=== PATIENT | male | born 1935 | race Caucasian/White ===

== ENCOUNTER 2019-02-11 12:05 | Inpatient (IN) | payer MEDICARE, OTHER ==
[2019-02-11 13:29] LABS: ADD MAN DIFF? NO
[2019-02-11 13:31] LABS: BASOPHILS % 0.2 % (0.0-2.0); EOSINOPHILS % 0.2 % (0.0-7.0); HEMATOCRIT 45.4 % (42.0-52.0); HEMOGLOBIN 14.6 g/dl (14.0-18.0); LYMPHOCYTES # 0.8 10^3/ul (0.8-2.9); LYMPHOCYTES % 7.1 % (15.0-51.0); MEAN CORPUSCULAR HEMOGLOBIN 31.8 pg (29.0-33.0); MEAN CORPUSCULAR HGB CONC 32.2 g/dl (32.0-37.0); MEAN CORPUSCULAR VOLUME 98.9 fl (82.0-101.0); MEAN PLATELET VOLUME 9.5 fl (7.4-10.4); MONOCYTE # 0.8 10^3/ul (0.3-0.9); MONOCYTES % 7.3 % (0.0-11.0); NEUTROPHIL # 9.3 10^3/ul (1.6-7.5); NEUTROPHILS % 84.8 % (39.0-77.0); PLATELET COUNT 245 10^3/UL (140-415); RED BLOOD COUNT 4.59 10^6/ul (4.70-6.10); RED CELL DISTRIBUTION WIDTH 12.7 % (11.5-14.5)
[2019-02-11] MEDS: ALBUTEROL 0.5% (NEB) 2.5 MG/0.5 ML AMP INH (13:31)
[2019-02-11] MEDS: IPRATROPIUM (NEB) 0.5 MG/2.5 ML AMP INH (13:32)
[2019-02-11] MEDS: CEFTRIAXONE 1 GM/50 ML (PMX) 50 ML IVPB ×2 (13:33→20:19)
[2019-02-11] MEDS: METHYLPREDNISOLONE 125 MG INJ IV (13:33)
[2019-02-11 13:47] LABS: ANION GAP 9 (5-13); BLOOD UREA NITROGEN 15 mg/dl (7-20); CALCIUM 9.3 mg/dl (8.4-10.2); CARBON DIOXIDE 31 mmol/L (21-31); CHLORIDE 97 mmol/L (97-110); CREATININE 0.69 mg/dl (0.61-1.24); GLUCOSE 91 mg/dl (70-220); SODIUM 137 mmol/L (135-144)
[2019-02-11] MEDS: AZITHROMYCIN 500MG/NS (PMX) 250 ML IV (13:50)
[2019-02-11 13:51] LABS: INR 2.65; PROTIME 28.3 Sec (11.9-14.9); PT RATIO 2.2
[2019-02-11 13:53] LABS: PARTIAL THROMBOPLASTIN TIME 64.6 Sec (23.0-35.0)
[2019-02-11 14:00] LABS: B-TYPE NATRIURETIC PEPTIDE 2550 PG/ML (0-450); TROPONIN-I < 0.012 ng/ml (0.000-0.120)
[2019-02-11] MEDS: SOD CHLORIDE 0.9% 1,000 ML IV (14:16)
[2019-02-11] MEDS ORDERED: ONDANSETRON 4 MG INJ IV (14:30)
[2019-02-11] MEDS ORDERED: ACETAMINOPHEN 325 MG TAB PO ×2 (14:30→15:00)
[2019-02-11] MEDS ORDERED: NACL 0.9% 3 ML SYG IV (15:00)
[2019-02-11] MEDS ORDERED: MAGNESIUM HYDROXIDE 30ML CUP PO (15:00)
[2019-02-11] MEDS ORDERED: HYDROCODONE/APAP (5/325) TAB PO (15:00)
[2019-02-11 19:54] LABS: LACTIC ACID 3.2 mmol/L (0.5-2.0)
[2019-02-11] MEDS: ALBUTEROL/IPRATROPIUM (NEB) 3 ML AMP HHN (20:03)
[2019-02-11] MEDS: DEXTROSE 5%-0.45% NACL 1,000 ML IV (20:18)
[2019-02-11] MEDS: RIVAROXABAN 20 MG TABLET PO (20:21)
[2019-02-11] MEDS: ATORVASTATIN 20 MG TAB PO (20:21)
[2019-02-11] MEDS: AZITHROMYCIN 250 MG TAB PO (21:12)
[2019-02-11 22:00] LABS: LACTIC ACID 2.8 mmol/L (0.5-2.0)
[2019-02-12] MEDS: ALBUTEROL/IPRATROPIUM (NEB) 3 ML AMP HHN ×4 (02:14→21:07)
[2019-02-12] MEDS: DEXTROSE 5%-0.45% NACL 1,000 ML IV ×2 (03:35→14:15)
[2019-02-12] MEDS: PANTOPRAZOLE (EC) 40 MG TAB PO (05:18)
[2019-02-12] MEDS: FOLIC ACID 1 MG TAB PO (08:28)
[2019-02-12] MEDS: DILTIAZEM (CD) 120 MG CAP PO ×2 (08:28→20:28)
[2019-02-12] MEDS: CEFTRIAXONE 1 GM/50 ML (PMX) 50 ML IVPB (08:28)
[2019-02-12] MEDS: AZITHROMYCIN 250 MG TAB PO (08:28)
[2019-02-12 10:33] LABS: HEMOGLOBIN A1C 5.7 % (0-5.9)
[2019-02-12] MEDS: RIVAROXABAN 20 MG TABLET PO (18:42)
[2019-02-12] MEDS: ATORVASTATIN 20 MG TAB PO (20:28)
[2019-02-13] MEDS: ALBUTEROL/IPRATROPIUM (NEB) 3 ML AMP HHN ×4 (02:18→20:08)
[2019-02-13] MEDS: PANTOPRAZOLE (EC) 40 MG TAB PO (05:05)
[2019-02-13] MEDS: DEXTROSE 5%-0.45% NACL 1,000 ML IV ×2 (05:05→20:27)
[2019-02-13 06:17] LABS: ADD MAN DIFF? NO
[2019-02-13 06:22] LABS: WHITE BLOOD COUNT 17.5 10^3/ul (4.8-10.8)
[2019-02-13 06:22] LABS: BASOPHILS % 0.2 % (0.0-2.0); HEMATOCRIT 39.1 % (42.0-52.0); HEMOGLOBIN 12.7 g/dl (14.0-18.0); LYMPHOCYTES # 0.7 10^3/ul (0.8-2.9); MEAN CORPUSCULAR HEMOGLOBIN 32.3 pg (29.0-33.0); MEAN CORPUSCULAR HGB CONC 32.5 g/dl (32.0-37.0); MEAN CORPUSCULAR VOLUME 99.5 fl (82.0-101.0); MEAN PLATELET VOLUME 9.5 fl (7.4-10.4); MONOCYTE # 0.9 10^3/ul (0.3-0.9); MONOCYTES % 5.3 % (0.0-11.0); NEUTROPHIL # 15.7 10^3/ul (1.6-7.5); NEUTROPHILS % 89.6 % (39.0-77.0); PLATELET COUNT 281 10^3/UL (140-415); RED BLOOD COUNT 3.93 10^6/ul (4.70-6.10); RED CELL DISTRIBUTION WIDTH 12.9 % (11.5-14.5)
[2019-02-13 06:49] LABS: ALANINE AMINOTRANSFERASE 50 IU/L (13-69); ALBUMIN 3.1 g/dl (3.3-4.9); ALBUMIN/GLOBULIN RATIO 1.14; ALKALINE PHOSPHATASE 89 IU/L (42-121); ANION GAP 6 (5-13); ASPARTATE AMINO TRANSFERASE 42 IU/L (15-46); BILIRUBIN,INDIRECT 0.2 mg/dl (0-1.1); BILIRUBIN,TOTAL 0.2 mg/dl (0.2-1.3); BLOOD UREA NITROGEN 19 mg/dl (7-20); CALCIUM 9.4 mg/dl (8.4-10.2); CARBON DIOXIDE 29 mmol/L (21-31); CHLORIDE 106 mmol/L (97-110); CREATININE 0.72 mg/dl (0.61-1.24); GLUCOSE 124 mg/dl (70-220); MAGNESIUM 2.1 mg/dl (1.7-2.5); PHOSPHORUS 3.4 mg/dl (2.5-4.9); POTASSIUM 4.2 mmol/L (3.5-5.1); SODIUM 141 mmol/L (135-144); TOTAL PROTEIN 5.8 g/dl (6.1-8.1)
[2019-02-13] MEDS: DILTIAZEM (CD) 120 MG CAP PO ×2 (08:46→20:28)
[2019-02-13] MEDS: FOLIC ACID 1 MG TAB PO (08:46)
[2019-02-13] MEDS: CEFTRIAXONE 1 GM/50 ML (PMX) 50 ML IVPB (08:46)
[2019-02-13] MEDS: AZITHROMYCIN 250 MG TAB PO (08:50)
[2019-02-13] MEDS: RIVAROXABAN 20 MG TABLET PO (17:46)
[2019-02-13] MEDS: predniSONE 20 MG TAB PO (17:46)
[2019-02-13] MEDS: ATORVASTATIN 20 MG TAB PO (20:28)
[2019-02-14] MEDS: ALBUTEROL/IPRATROPIUM (NEB) 3 ML AMP HHN ×3 (01:09→15:00)
[2019-02-14] MEDS: PANTOPRAZOLE (EC) 40 MG TAB PO (05:11)
[2019-02-14 06:57] LABS: ADD MAN DIFF? NO
[2019-02-14 06:59] LABS: ABNORMAL IP MESSAGE 1; BASOPHIL # 0.1 10^3/ul (0.0-0.1); BASOPHILS % 0.5 % (0.0-2.0); HEMATOCRIT 42.7 % (42.0-52.0); HEMOGLOBIN 13.6 g/dl (14.0-18.0); LYMPHOCYTES # 0.5 10^3/ul (0.8-2.9); LYMPHOCYTES % 4.4 % (15.0-51.0); MEAN CORPUSCULAR HEMOGLOBIN 32.1 pg (29.0-33.0); MEAN CORPUSCULAR HGB CONC 31.9 g/dl (32.0-37.0); MEAN CORPUSCULAR VOLUME 100.7 fl (82.0-101.0); MEAN PLATELET VOLUME 9.2 fl (7.4-10.4); MONOCYTE # 0.6 10^3/ul (0.3-0.9); MONOCYTES % 5.4 % (0.0-11.0); NEUTROPHIL # 10.3 10^3/ul (1.6-7.5); NEUTROPHILS % 87.3 % (39.0-77.0); PLATELET COUNT 316 10^3/UL (140-415); POSITIVE DIFF @See below; RED BLOOD COUNT 4.24 10^6/ul (4.70-6.10); RED CELL DISTRIBUTION WIDTH 12.9 % (11.5-14.5)
[2019-02-14 06:59] LABS: WHITE BLOOD COUNT 11.8 10^3/ul (4.8-10.8)
[2019-02-14 07:23] LABS: PHOSPHORUS 4.2 mg/dl (2.5-4.9)
[2019-02-14 07:23] LABS: MAGNESIUM 1.9 mg/dl (1.7-2.5)
[2019-02-14 07:33] LABS: ANION GAP 8 (5-13); BLOOD UREA NITROGEN 21 mg/dl (7-20); CALCIUM 9.4 mg/dl (8.4-10.2); CARBON DIOXIDE 29 mmol/L (21-31); CHLORIDE 103 mmol/L (97-110); CREATININE 0.68 mg/dl (0.61-1.24); GLUCOSE 123 mg/dl (70-220); POTASSIUM 4.3 mmol/L (3.5-5.1); SODIUM 140 mmol/L (135-144)
[2019-02-14] MEDS: predniSONE 20 MG TAB PO (08:16)
[2019-02-14] MEDS: DILTIAZEM (CD) 120 MG CAP PO ×2 (08:17→19:45)
[2019-02-14] MEDS: CEFTRIAXONE 1 GM/50 ML (PMX) 50 ML IVPB (08:17)
[2019-02-14] MEDS: AZITHROMYCIN 250 MG TAB PO (08:17)
[2019-02-14] MEDS: FOLIC ACID 1 MG TAB PO (08:17)
[2019-02-14] MEDS: DEXTROSE 5%-0.45% NACL 1,000 ML IV (08:49)
[2019-02-14] MEDS: IPRATROPIUM (NEB) 0.5 MG/2.5 ML AMP HHN ×2 (17:00→20:34)
[2019-02-14] MEDS: RIVAROXABAN 20 MG TABLET PO (17:48)
[2019-02-14] MEDS: ATORVASTATIN 20 MG TAB PO (19:44)
[2019-02-15] MEDS: IPRATROPIUM (NEB) 0.5 MG/2.5 ML AMP HHN ×5 (01:03→16:41)
[2019-02-15] MEDS: PANTOPRAZOLE (EC) 40 MG TAB PO (05:51)
[2019-02-15 07:12] LABS: ADD MAN DIFF? NO
[2019-02-15 07:15] LABS: WHITE BLOOD COUNT 12.5 10^3/ul (4.8-10.8)
[2019-02-15 07:15] LABS: ABNORMAL IP MESSAGE 1; BASOPHIL # 0.1 10^3/ul (0.0-0.1); EOSINOPHILS % 0.1 % (0.0-7.0); HEMATOCRIT 43.6 % (42.0-52.0); HEMOGLOBIN 13.9 g/dl (14.0-18.0); MEAN CORPUSCULAR HEMOGLOBIN 31.7 pg (29.0-33.0); MEAN CORPUSCULAR HGB CONC 31.9 g/dl (32.0-37.0); MEAN CORPUSCULAR VOLUME 99.5 fl (82.0-101.0); MEAN PLATELET VOLUME 9.3 fl (7.4-10.4); MONOCYTE # 1.3 10^3/ul (0.3-0.9); MONOCYTES % 10.4 % (0.0-11.0); NEUTROPHIL # 9.2 10^3/ul (1.6-7.5); NEUTROPHILS % 73.9 % (39.0-77.0); PLATELET COUNT 358 10^3/UL (140-415); POSITIVE DIFF @See below; RED BLOOD COUNT 4.38 10^6/ul (4.70-6.10); RED CELL DISTRIBUTION WIDTH 12.7 % (11.5-14.5)
[2019-02-15 07:33] LABS: ANION GAP 6 (5-13); BLOOD UREA NITROGEN 22 mg/dl (7-20); CARBON DIOXIDE 32 mmol/L (21-31); CHLORIDE 103 mmol/L (97-110); GLUCOSE 92 mg/dl (70-220); POTASSIUM 4.6 mmol/L (3.5-5.1); SODIUM 141 mmol/L (135-144)
[2019-02-15 07:41] LABS: B-TYPE NATRIURETIC PEPTIDE 2070 PG/ML (0-450)
[2019-02-15] MEDS: FOLIC ACID 1 MG TAB PO (08:38)
[2019-02-15] MEDS: DILTIAZEM (CD) 120 MG CAP PO (08:38)
[2019-02-15] MEDS: AZITHROMYCIN 250 MG TAB PO (08:38)
[2019-02-15] MEDS: predniSONE 20 MG TAB PO (08:38)
[2019-02-15 09:13] LABS: ANISOCYTOSIS 1+ (0-0); BAND NEUTROPHILS #M 0.5 10^3/ul (0.0-0.6); BAND NEUTROPHILS % (M) 4 % (0-4); BURR CELLS 1+ (0-0); GIANT THROMBO% (M) 1 % (0-0); LYMPHOCYTES #M 0.6 10^3/ul (0.8-2.9); LYMPHOCYTES % (M) 5 % (15-51); METAMYELOCYTES #M 0.2 10^3/ul (0.0-0.0); METAMYELOCYTES %M 2 % (0-0); MICROCYTOSIS 1+ (0-0); MONOCYTE #M 0.2 10^3/ul (0.3-0.9); MONOCYTES % (M) 2 % (0-11); MYELOCYTES #M 0.1 10^3/ul (0.0-0.0); MYELOCYTES % (M) 1 % (0-0); OVALOCYTES 1+ (0-0); PLATELET ESTIMATE NORMAL; POIKILOCYTOSIS 2+ (0-0); POLYCHROMASIA 1+ (0-0); SEG NEUT #M 10.8 10^3/ul (1.6-7.5); SEGMENTED NEUTROPHILS (M) % 86 % (39-77); SMUDGE%M 3 % (0-0)
[2019-02-15] MEDS: RIVAROXABAN 20 MG TABLET PO (16:56)
== END 2019-02-15 18:46 | disposition home or self-care (01) | DRG 202 ==
LOC: E/R 12:05 → TEL 14:03
DX: J20.9 Acute bronchitis, unspecified (principal); E44.1 Mild protein-calorie malnutrition; Z68.1 Body mass index [BMI] 19.9 or less, adult; E86.0 Dehydration; N40.0 Benign prostatic hyperplasia without lower urinary tract symptoms; K21.9 Gastro-esophageal reflux disease without esophagitis; I11.0 Hypertensive heart disease with heart failure; I50.9 Heart failure, unspecified; I45.10 Unspecified right bundle-branch block; E78.5 Hyperlipidemia, unspecified; I95.1 Orthostatic hypotension; I48.2 Chronic atrial fibrillation; M16.11 Unilateral primary osteoarthritis, right hip; I27.81 Cor pulmonale (chronic); Z79.01 Long term (current) use of anticoagulants
CPT/HCPCS: 36415; 71045; 80048; 80053; 83036; 83605; 83735; 83880; 84100; 84443; 84484; 85025; 85610; 85730; 87040-91; 93005; 93306; 94640; 94644; 94664; 96374; 96375; 99285-25

== ENCOUNTER 2019-04-01 07:56 | Inpatient (IN) | payer MEDICARE, OTHER ==
[2019-04-01] MEDS: DEXAMETHASONE 1 MG TAB PO (08:14)
[2019-04-01] MEDS: GABAPENTIN 300 MG CAP PO ×2 (08:14→21:13)
[2019-04-01] MEDS ORDERED: MIDAZOLAM 1 MG/ML 2 ML INJ (09:33)
[2019-04-01] MEDS ORDERED: FENTAnyl 50 MCG/ML VIAL (09:33)
[2019-04-01] MEDS ORDERED: TRANEXAMIC ACID 1GM/100ML(PMX) 100 ML (09:54)
[2019-04-01] MEDS: POLYMYXIN/BACITRACIN 1L IRRIG IRR (09:58)
[2019-04-01] MEDS ORDERED: THROMBIN 5000 UNIT VIAL (10:03)
[2019-04-01] MEDS ORDERED: CA CHLORIDE 10% 10 ML SYRINGE (10:03)
[2019-04-01] MEDS ORDERED: PHENYLephrine 10 MG INJ ×2 (10:30→11:23)
[2019-04-01] MEDS: CEFAZOLIN 2 GM/50 ML (PMX) 50 ML IVPB (10:30)
[2019-04-01] MEDS: TRANEXAMIC ACID 1GM/100ML(PMX) 100 ML IVPB (10:30)
[2019-04-01] MEDS ORDERED: ETOMIDATE 20 MG INJ (11:28)
[2019-04-01] MEDS ORDERED: CEFAZOLIN 1 GM INJ (11:28)
[2019-04-01] MEDS ORDERED: LIDOCAINE 2% (SDV) 5 ML INJ (11:28)
[2019-04-01] MEDS ORDERED: ROCURONIUM 50 MG INJ (11:28)
[2019-04-01] MEDS ORDERED: ONDANSETRON 4 MG INJ (11:29)
[2019-04-01] MEDS ORDERED: DIPHENHYDRAMINE 50 MG INJ IV ×2 (11:30→12:00)
[2019-04-01] MEDS ORDERED: ZOLPIDEM 5 MG TAB PO (11:30)
[2019-04-01] MEDS ORDERED: NACL 0.9% 3 ML SYG IV (11:30)
[2019-04-01] MEDS ORDERED: oxyCODONE 5 MG TAB PO ×2 (11:30)
[2019-04-01] MEDS ORDERED: ONDANSETRON 4 MG INJ IV ×2 (11:30→12:00)
[2019-04-01] MEDS ORDERED: MAGNESIUM HYDROXIDE 30ML CUP PO (11:30)
[2019-04-01] MEDS ORDERED: HYDROmorphONE 1 MG/ML SYG IV (11:30)
[2019-04-01] MEDS ORDERED: HYDROmorphONE 1 MG/5 ML IV SYRINGE IV ×2 (12:00)
[2019-04-01] MEDS ORDERED: MEPERIDINE 25 MG INJ IV (12:00)
[2019-04-01] MEDS ORDERED: FENTAnyl 50 MCG/ML VIAL IV (12:00)
[2019-04-01] MEDS ORDERED: BUPIVACAINE 0.5% (SDV) 30 ML, morphine SULFATE (PF) 8 MG, EPINEPHrine 0.3 MG, KETOROLAC... IRR (12:00)
[2019-04-01] MEDS ORDERED: METOCLOPRAMIDE 10 MG INJ IV (12:00)
[2019-04-01 12:43] LABS: ADD MAN DIFF? NO
[2019-04-01 12:44] LABS: ABNORMAL IP MESSAGE 1; BASOPHILS % 0.2 % (0.0-2.0); EOSINOPHILS % 0.1 % (0.0-7.0); HEMATOCRIT 38.1 % (42.0-52.0); HEMOGLOBIN 12.3 g/dl (14.0-18.0); LYMPHOCYTES # 0.4 10^3/ul (0.8-2.9); LYMPHOCYTES % 2.7 % (15.0-51.0); MEAN CORPUSCULAR HEMOGLOBIN 32.2 pg (29.0-33.0); MEAN CORPUSCULAR HGB CONC 32.3 g/dl (32.0-37.0); MEAN CORPUSCULAR VOLUME 99.7 fl (82.0-101.0); MONOCYTE # 0.3 10^3/ul (0.3-0.9); MONOCYTES % 1.9 % (0.0-11.0); NEUTROPHIL # 13.7 10^3/ul (1.6-7.5); NEUTROPHILS % 94.3 % (39.0-77.0); PLATELET COUNT 228 10^3/UL (140-415); POSITIVE DIFF @See below; RED BLOOD COUNT 3.82 10^6/ul (4.70-6.10); RED CELL DISTRIBUTION WIDTH 14.1 % (11.5-14.5)
[2019-04-01 12:44] LABS: WHITE BLOOD COUNT 14.6 10^3/ul (4.8-10.8)
[2019-04-01] MEDS: SOD CHLORIDE 0.9% 100 ML, TRANEXAMIC ACID 3,000 MG IRR (12:47)
[2019-04-01] MEDS ORDERED: ACETAMINOPHEN 1000MG/100ML IV 100 ML (12:49)
[2019-04-01] MEDS ORDERED: CEFAZOLIN 1 GM/50 ML (PMX) 50 ML IVPB (12:49)
[2019-04-01] MEDS: CEFAZOLIN 1 GM/50 ML (PMX) 50 ML IVPB ×2 (13:00→21:13)
[2019-04-01] MEDS: ACETAMINOPHEN 1000MG/100ML IV 100 ML IVPB ×2 (13:03→20:19)
[2019-04-01] MEDS: LACTATED RINGER'S 1,000 ML IV ×2 (13:43→17:49)
[2019-04-01] MEDS: DEXAMETHASONE 2 MG TAB PO ×3 (14:09→23:28)
[2019-04-01] MEDS ORDERED: RIVAROXABAN 20 MG TABLET PO (17:55)
[2019-04-01] MEDS ORDERED: ATORVASTATIN 20 MG TAB PO (21:00)
[2019-04-01] MEDS ORDERED: TAMSULOSIN (SR) 0.4 MG CAP PO (21:00)
[2019-04-01] MEDS: DILTIAZEM (CD) 120 MG CAP PO (21:13)
[2019-04-01] MEDS: SENNA/DOCUSATE NA (8.6MG/50MG) TAB PO (21:14)
[2019-04-02] MEDS: CEFAZOLIN 1 GM/50 ML (PMX) 50 ML IVPB (05:17)
[2019-04-02] MEDS: LACTATED RINGER'S 1,000 ML IV ×2 (05:17→17:23)
[2019-04-02] MEDS: ACETAMINOPHEN 1000MG/100ML IV 100 ML IVPB (05:18)
[2019-04-02] MEDS: DEXAMETHASONE 2 MG TAB PO (05:18)
[2019-04-02 05:41] LABS: ADD MAN DIFF? NO
[2019-04-02 05:46] LABS: ABNORMAL IP MESSAGE 1; BASOPHILS % 0.1 % (0.0-2.0); HEMATOCRIT 34.7 % (42.0-52.0); HEMOGLOBIN 11.4 g/dl (14.0-18.0); LYMPHOCYTES # 0.4 10^3/ul (0.8-2.9); MEAN CORPUSCULAR HEMOGLOBIN 32.4 pg (29.0-33.0); MEAN CORPUSCULAR HGB CONC 32.9 g/dl (32.0-37.0); MEAN CORPUSCULAR VOLUME 98.6 fl (82.0-101.0); MEAN PLATELET VOLUME 9.4 fl (7.4-10.4); MONOCYTE # 1.2 10^3/ul (0.3-0.9); MONOCYTES % 6.4 % (0.0-11.0); NEUTROPHIL # 16.9 10^3/ul (1.6-7.5); NEUTROPHILS % 91.1 % (39.0-77.0); PLATELET COUNT 225 10^3/UL (140-415); POSITIVE DIFF @See below; RED BLOOD COUNT 3.52 10^6/ul (4.70-6.10); RED CELL DISTRIBUTION WIDTH 14.3 % (11.5-14.5)
[2019-04-02 05:46] LABS: WHITE BLOOD COUNT 18.6 10^3/ul (4.8-10.8)
[2019-04-02] MEDS: DILTIAZEM (CD) 120 MG CAP PO ×2 (08:07→20:56)
[2019-04-02] MEDS: SENNA/DOCUSATE NA (8.6MG/50MG) TAB PO ×2 (08:25→20:56)
[2019-04-02] MEDS: FOLIC ACID 1 MG TAB PO (08:26)
[2019-04-02] MEDS: oxyCODONE 5 MG TAB PO ×2 (08:28→20:57)
[2019-04-02] MEDS ORDERED: NON-FORMULARY/PATIENT OWN MED (Ubidecarenone (Coq-10) 100 MG) PO (09:00)
[2019-04-02] MEDS: SOD CHLORIDE 0.9% 250 ML IV ×2 (11:16→14:18)
[2019-04-02] MEDS: RIVAROXABAN 20 MG TABLET PO (18:10)
[2019-04-02] MEDS: ATORVASTATIN 20 MG TAB PO (20:55)
[2019-04-02] MEDS: GABAPENTIN 300 MG CAP PO (20:56)
[2019-04-02] MEDS: TAMSULOSIN (SR) 0.4 MG CAP PO (20:56)
[2019-04-03] MEDS: oxyCODONE 5 MG TAB PO (05:04)
[2019-04-03 05:29] LABS: ADD MAN DIFF? NO
[2019-04-03 05:35] LABS: ABNORMAL IP MESSAGE 1; BASOPHILS % 0.1 % (0.0-2.0); HEMATOCRIT 34.4 % (42.0-52.0); HEMOGLOBIN 11.2 g/dl (14.0-18.0); LYMPHOCYTES # 0.5 10^3/ul (0.8-2.9); LYMPHOCYTES % 2.4 % (15.0-51.0); MEAN CORPUSCULAR HEMOGLOBIN 32.3 pg (29.0-33.0); MEAN CORPUSCULAR HGB CONC 32.6 g/dl (32.0-37.0); MEAN CORPUSCULAR VOLUME 99.1 fl (82.0-101.0); MEAN PLATELET VOLUME 9.5 fl (7.4-10.4); MONOCYTE # 1.5 10^3/ul (0.3-0.9); MONOCYTES % 6.7 % (0.0-11.0); NEUTROPHIL # 19.8 10^3/ul (1.6-7.5); NEUTROPHILS % 89.8 % (39.0-77.0); PLATELET COUNT 214 10^3/UL (140-415); POSITIVE DIFF @See below; RED BLOOD COUNT 3.47 10^6/ul (4.70-6.10); RED CELL DISTRIBUTION WIDTH 14.5 % (11.5-14.5)
[2019-04-03 05:35] LABS: WHITE BLOOD COUNT 22.1 10^3/ul (4.8-10.8)
[2019-04-03 06:18] LABS: ALANINE AMINOTRANSFERASE 30 IU/L (13-69); ALBUMIN 3.2 g/dl (3.3-4.9); ALBUMIN/GLOBULIN RATIO 1.28; ALKALINE PHOSPHATASE 61 IU/L (42-121); ANION GAP 4 (5-13); ASPARTATE AMINO TRANSFERASE 29 IU/L (15-46); BILIRUBIN,INDIRECT 0.4 mg/dl (0-1.1); BILIRUBIN,TOTAL 0.4 mg/dl (0.2-1.3); BLOOD UREA NITROGEN 22 mg/dl (7-20); CARBON DIOXIDE 31 mmol/L (21-31); CHLORIDE 105 mmol/L (97-110); CREATININE 0.94 mg/dl (0.61-1.24); GLUCOSE 126 mg/dl (70-220); POTASSIUM 4.2 mmol/L (3.5-5.1); SODIUM 140 mmol/L (135-144); TOTAL PROTEIN 5.7 g/dl (6.1-8.1)
[2019-04-03] MEDS: DILTIAZEM (CD) 120 MG CAP PO ×2 (08:58→21:57)
[2019-04-03] MEDS: FOLIC ACID 1 MG TAB PO (08:58)
[2019-04-03] MEDS: SENNA/DOCUSATE NA (8.6MG/50MG) TAB PO ×2 (08:58→21:56)
[2019-04-03] MEDS: RIVAROXABAN 20 MG TABLET PO (18:25)
[2019-04-03] MEDS: MAGNESIUM HYDROXIDE 30ML CUP PO (18:27)
[2019-04-03 20:27] LABS: ADD UMIC YES; UR ASCORBIC ACID NEGATIVE (NEGATIVE); UR BILIRUBIN (Dip) NEGATIVE (NEGATIVE); UR BLOOD (Dip) 2+ mg/dL (NEGATIVE); UR CLARITY CLEAR (CLEAR); UR COLOR YELLOW (YELLOW); UR GLUCOSE (Dip) NEGATIVE (NEGATIVE); UR KETONES (Dip) NEGATIVE (NEGATIVE); UR LEUKOCYTE ESTERASE (Dip) NEGATIVE Leu/ul (NEGATIVE); UR NITRITE (Dip) NEGATIVE (NEGATIVE); UR RBC 4 /HPF (0-5); UR SPECIFIC GRAVITY (Dip) 1.011 (1.003-1.030); UR TOTAL PROTEIN (Dip) NEGATIVE (NEGATIVE); UR UROBILINOGEN (Dip) NEGATIVE (NEGATIVE); UR WBC 1 /HPF (0-5)
[2019-04-03] MEDS: TAMSULOSIN (SR) 0.4 MG CAP PO (21:57)
[2019-04-03] MEDS: GABAPENTIN 300 MG CAP PO (21:57)
[2019-04-03] MEDS: ATORVASTATIN 20 MG TAB PO (21:58)
[2019-04-04 04:57] LABS: ADD MAN DIFF? NO
[2019-04-04 05:07] LABS: WHITE BLOOD COUNT 14.5 10^3/ul (4.8-10.8)
[2019-04-04 05:07] LABS: BASOPHILS % 0.1 % (0.0-2.0); EOSINOPHILS % 0.3 % (0.0-7.0); HEMATOCRIT 33.1 % (42.0-52.0); HEMOGLOBIN 10.9 g/dl (14.0-18.0); LYMPHOCYTES % 6.8 % (15.0-51.0); MEAN CORPUSCULAR HEMOGLOBIN 32.3 pg (29.0-33.0); MEAN CORPUSCULAR HGB CONC 32.9 g/dl (32.0-37.0); MEAN CORPUSCULAR VOLUME 98.2 fl (82.0-101.0); MEAN PLATELET VOLUME 9.5 fl (7.4-10.4); MONOCYTE # 1.2 10^3/ul (0.3-0.9); MONOCYTES % 8.5 % (0.0-11.0); NEUTROPHIL # 12.1 10^3/ul (1.6-7.5); NEUTROPHILS % 83.3 % (39.0-77.0); PLATELET COUNT 185 10^3/UL (140-415); RED BLOOD COUNT 3.37 10^6/ul (4.70-6.10); RED CELL DISTRIBUTION WIDTH 14.6 % (11.5-14.5)
[2019-04-04 05:34] LABS: ALANINE AMINOTRANSFERASE 50 IU/L (13-69); ALBUMIN 2.9 g/dl (3.3-4.9); ALBUMIN/GLOBULIN RATIO 1.11; ALKALINE PHOSPHATASE 73 IU/L (42-121); ANION GAP 4 (5-13); ASPARTATE AMINO TRANSFERASE 40 IU/L (15-46); BILIRUBIN,INDIRECT 0.3 mg/dl (0-1.1); BILIRUBIN,TOTAL 0.3 mg/dl (0.2-1.3); BLOOD UREA NITROGEN 23 mg/dl (7-20); CALCIUM 8.5 mg/dl (8.4-10.2); CARBON DIOXIDE 30 mmol/L (21-31); CHLORIDE 105 mmol/L (97-110); CREATININE 0.78 mg/dl (0.61-1.24); GLUCOSE 100 mg/dl (70-220); POTASSIUM 4.3 mmol/L (3.5-5.1); SODIUM 139 mmol/L (135-144); TOTAL PROTEIN 5.5 g/dl (6.1-8.1)
[2019-04-04] MEDS: SENNA/DOCUSATE NA (8.6MG/50MG) TAB PO (08:40)
[2019-04-04] MEDS: FOLIC ACID 1 MG TAB PO (08:40)
[2019-04-04] MEDS: DILTIAZEM (CD) 120 MG CAP PO (08:40)
[2019-04-04] MEDS: AZITHROMYCIN 500 MG TAB PO (11:09)
[2019-04-05] MEDS ORDERED: AZITHROMYCIN 250 MG TAB PO (09:00)
== END 2019-04-04 13:26 | disposition home or self-care (01) | DRG 470 ==
LOC: REC 07:56 → MS1 13:04
PROVIDERS: Orthopaedic Surgery
PROC: 0SR904A Replacement of Right Hip Joint with Ceramic on Polyethylene Synthetic Substitute, Uncemented, Open Approach (ICD-10-PCS; principal; 2019-04-01 09:30)
DX: M16.11 Unilateral primary osteoarthritis, right hip (principal); J44.9 Chronic obstructive pulmonary disease, unspecified; I48.2 Chronic atrial fibrillation; I10 Essential (primary) hypertension; E78.5 Hyperlipidemia, unspecified; N40.0 Benign prostatic hyperplasia without lower urinary tract symptoms; Z79.02 Long term (current) use of antithrombotics/antiplatelets; D64.9 Anemia, unspecified
CPT/HCPCS: 71046; 72170; 73530; 80053; 81001; 85025; 86999; 87040-91; 87086; 88304; 88311; 97110; 97116; 97161; 97530